=== PATIENT | female | born 1930 | race Caucasian/White ===

== ENCOUNTER 2017-02-21 04:49 | Observation (INO) ==
[2017-02-21] MEDS ORDERED: 0.9 % Sodium Chloride 500 ML IVC ONE (05:10)
[2017-02-21 05:18] LABS: Basophils % 0.8 %; Eosinophils # 0.3 K/mcL (0.0-0.6); Eosinophils % 5.7 %; Hematocrit 36.6 % (35.3-44.9); Hemoglobin 11.8 g/dL (11.5-15.4); Immature Granulocytes % 0.2 % (0-4); Lymphocytes % 20.5 %; Mean Corpuscular HGB Conc 32.2 g/dL (31.6-35.5); Mean Corpuscular Hemoglobin 30.3 pg (28.0-33.3); Mean Corpuscular Volume 94.1 fL (83.0-100.0); Mean Platelet Volume 8.6 fL (9.4-12.4); Monocytes # 0.7 K/mcL (0.0-1.3); Monocytes % 15.1 %; Neutrophils # 2.8 K/mcL (1.6-8.9); Platelet Count 160 K/mcL (140-400); Red Blood Count 3.89 M/mcL (3.82-4.97); Red Cell Distribution Width 14.5 % (11.5-14.5); Segmented Neutrophils % 57.7 %
--- NOTE | 2017-02-21 05:19 | Emergency Department Note ---
Disposition Clinical Impression: Chest pain Qualifiers: Chest pain type: unspecified Qualified Code(s): R07.9 - Chest pain, unspecified Disposition: Admitted As Inpatient Condition: Fair Time of Disposition: 07:36 Chest Pain HPI - General Chief Complaint: ED Chest Pain Stated Complaint: CP Time Seen by Provider: 02/21/17 04:57 Source: patient, EMS Limitations: no limitations Vital Signs Reviewed: Yes Nursing Notes Reviewed: Yes - History of Present Illness HPI Narrative: Patient is an 86-year-old female complains of chest pain that started 1 hour ago. 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 Patient states pain lasts about 20 or 30 minutes bedside assistant corporate secretary side. When EMS arrived. He was ready heading down they gave her nitroglycerin. Patient had 325 mg of aspirin 8 hours ago. Patient on Plavix after CABG. 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 Patient is unable to lift the lid of her left eye as a complication from that surgery. Severity scale (1-10): 0 - Related Data Home Medications Medication Instructions Recorded Confirmed Aspirin Enteric Coated [Aspirin EC] 325 mg PO DAILY 02/21/17 02/21/17 Budesonide [Pulmicort Flexhaler 1 puff IH BID 02/21/17 02/21/17 180mcg] Clopidogrel [Plavix] 75 mg PO DAILY 02/21/17 02/21/17 Digoxin [Lanoxin] 0.125 mg PO DAILY 02/21/17 02/21/17 Ergocalciferol (VITAMIN D2) 400 unit PO DAILY 02/21/17 02/21/17 [Vitamin D] Fluticasone Propionate Nasal 1 spray NS DAILY PRN 02/21/17 02/21/17 [Flonase] Lactobacillus Acidophilus 100 mg PO BID 02/21/17 02/21/17 [Acidophilus] Metoprolol XL (24 HR) Succ [Toprol 50 mg PO DAILY 02/21/17 02/21/17 XL] Nitroglycerin [Nitrostat] 0.4 mg SL Q5M PRN 02/21/17 02/21/17 Pantoprazole Sodium [Protonix] 40 mg PO DAILY 02/21/17 02/21/17 Polyethylene Glycol 3350 [MiraLAX 17 gm PO DAILY PRN 02/21/17 02/21/17 bowel prep] Pramipexole Di-HCl [Pramipexole 0.125 mg PO DAILY 02/21/17 02/21/17 Dihydrochloride] Allergies Allergy/AdvReac Type Severity Reaction Status Date / Time Antihistamines - Alkylamine Allergy Hives Verified 02/21/17 11:14 cephalexin [From Keflex] Allergy Anxiety Verified 02/21/17 11:14 Penicillins Allergy Anaphylaxis Verified 02/21/17 11:14 Sulfa (Sulfonamide Allergy Anaphylaxis Verified 02/21/17 11:14 Antibiotics) Blood Thinners Allergy Anaphylaxis Uncoded 07/15/15 11:25 decongestants Allergy Anaphylaxis Uncoded 07/15/15 11:25 All systems ED: reviewed and negative except as stated. Constitutional: Denies: fever, chills, weakness ENT ED: Denies: congestion, dysphagia Cardiovascular: Reports: chest pain. Denies: palpitations, orthopnea, syncope Respiratory: Denies: cough, dyspnea, wheezes, sputum production Gastrointestinal: Reports: nausea, constipation. Denies: abdominal pain, vomiting, diarrhea Genitourinary: Denies: urgency, dysuria, frequency Musculoskeletal: Reports: back pain. Denies: neck pain Integumentary: Denies: rash Neurological: Denies: headache, weakness Psychiatric: Denies: anxiety, depression Endocrine: Denies: fatigue Chest Pain PMH - Past Medical History Medical history: Reports: hyperlipidemia, hypertension, other Surgical history: Reports: coronary bypass (CABG), pacemaker/AICD, thyroidectomy Psychiatric history: Reports: no psych history - Social History Smoking Status: Never smoker Alcohol use: Reports: none Drug use: Reports: none Physical Exam - General Limitations: no limitations General appearance: alert - Head Head exam: atraumatic, normocephalic, normal inspection - Eye Eye exam: Present: normal appearance, PERRL, EOMI - ENT ENT exam: normal exam, normal oropharynx, mucous membranes moist - Neck Neck exam: Present: normal inspection, full ROM, trachea midline. Absent: tenderness, meningismus, lymphadenopathy - Chest Chest inspection: Present: normal inspection, symmetric chest wall rise. Absent : tenderness - Respiratory Respiratory exam: Present: normal lung sounds bilaterally. Absent: respiratory distress, wheezes - Cardiovascular Cardiovascular exam: Present: regular rate, normal rhythm - Abdominal Exam Abdominal exam: Present: soft, Non-Tender. Absent: tenderness, distention - Neurological Exam Neurological exam: Present: alert, oriented X3, CN II-XII intact - Psychiatric Psychiatric exam: Present: normal affect, normal mood - Skin Skin exam: Present: warm, dry, intact Course - Reevaluation(s) Reevaluation #1: Assessment: ACS/FL, aortic dissection, AAA, PE, pneumothorax Plan: CBC, BMP, EKG, troponin, chest x-ray, start IV, patient really had aspirin 325 mg 8 hours ago. Patient received nitroglycerin in route via EMS 1. Patient's pain currently 0 out of 10. Admit patient for further evaluation. Time: 04:58 Reevaluation #2: Patient states that she is doing well. No complaints at this time. Waiting for her to give urine sample No lab abnormalities in CBC or BMP. Troponin is negative is 0.03 chest x-ray shows no acute abnormalities. Time: 05:30 Reevaluation #3: Patient sleeping comfortably. No complaints at this time awaiting callback from hospitalist for admission Time: 06:15 Additional Reevaluation(s): Patient finally accepted by hospitalist. Patient's currently comfortable. ED evaluation complete - Consultations Consultation #1: Dr. Lee has accepted for admission 0732 hrs Time: 07:37 Vital Signs Temperature 98.2 F 02/21/17 04:54 Pulse Rate 67 02/21/17 04:54 Respiratory Rate 14 02/21/17 04:54 Blood Pressure 151/89 02/21/17 04:54 O2 Sat by Pulse Oximetry 97 02/21/17 04:54 Temperature 98.0 F 02/21/17 18:40 Pulse Rate 67 02/21/17 18:40 Respiratory Rate 16 02/21/17 18:40 Blood Pressure 133/74 02/21/17 18:40 O2 Sat by Pulse Oximetry 97 02/21/17 18:40 Oxygen Delivery Oxygen Delivery Room Air Chest Pain - Medical Records Medical records reviewed: Yes I reviewed the patient's medical records. - Lab Data Lab results reviewed: Yes I reviewed the patient's lab results. Lab results narrative: Short CBC 02/21/17 Range/Units 05:11 WBC 4.8 (4.3-11.1) K/mcL Hgb 11.8 (11.5-15.4) g/dL Hct 36.6 (35.3-44.9) % Plt Count 160 (140-400) K/mcL Neutrophils # 2.8 (1.6-8.9) K/mcL BMP 02/21/17 Range/Units 05:11 Sodium 140 (136-145) mEq/L Potassium 4.0 (3.5-4.5) mEq/L Chloride 107 (98-109) mEq/L Carbon Dioxide 29 (19-29) mEq/L BUN 10 (7-20) mg/dL Creatinine 0.66 (0.57-1.11) mg/dL Glucose 90 (70-99) mg/dL Calcium 9.2 (8.6-10.8) mg/dL Cardiac Enzymes 02/21/17 Range/Units 05:11 Troponin I 0.03 (0-0.03) ng/mL Urine 02/21/17 Range/Units 06:15 Urine Color Yellow (Yellow) Urine Clarity Clear (Clear) Urine pH 7.0 (5.0-8.0) pH Units Ur Specific [place] 1.008 L (1.010-1.025) Urine Protein Negative (Neg-Trace) mg/dL Urine Glucose (UA) Normal (Normal) mg/dL Result diagrams: 02/21/17 05:11 02/21/17 05:11 Lab Results 02/21/17 02/21/17 02/21/17 Range/Units 05:11 05:11 05:11 WBC 4.8 (4.3-11.1) K/mcL RBC 3.89 (3.82-4.97) M/mcL Hgb 11.8 (11.5-15.4) g/dL Hct 36.6 (35.3-44.9) % MCV 94.1 (83.0-100.0) fL MCH 30.3 (28.0-33.3) pg MCHC 32.2 (31.6-35.5) g/dL RDW 14.5 (11.5-14.5) % Plt Count 160 (140-400) K/mcL MPV 8.6 L (9.4-12.4) fL Immature Gran % 0.2 (0-4) % Seg Neutrophils % 57.7 % Lymphocytes % 20.5 % Monocytes % 15.1 % Eosinophils % 5.7 % Basophils % 0.8 % Neutrophils # 2.8 (1.6-8.9) K/mcL Lymphocytes # 1.0 (0.6-4.6) K/mcL Monocytes # 0.7 (0.0-1.3) K/mcL Eosinophils # 0.3 (0.0-0.6) K/mcL Basophils # 0.0 (0.0-0.2) K/mcL PT 11.2 (9.4-12.1) Seconds INR 1.0 APTT 28.7 (26.0-36.0) Seconds Sodium 140 (136-145) mEq/L Potassium 4.0 (3.5-4.5) mEq/L Chloride 107 (98-109) mEq/L Carbon Dioxide 29 (19-29) mEq/L BUN 10 (7-20) mg/dL Creatinine 0.66 (0.57-1.11) mg/dL Est GFR ( Amer) > 60 (> 60) Est GFR (Non-Af Amer) > 60 (> 60) BUN/Creatinine Ratio 15 (6-26) Glucose 90 (70-99) mg/dL Calculated Osmolality 289 (280-300) Calcium 9.2 (8.6-10.8) mg/dL Troponin I (0-0.03) ng/mL Urine Color (Yellow) Urine Clarity (Clear) Urine pH (5.0-8.0) pH Units Ur Specific [place] (1.010-1.025) Urine Protein (Neg-Trace) mg/dL Urine Glucose (UA) (Normal) mg/dL Urine Ketones (Negative) mg/dL Urine Blood (Negative) Urine Nitrite (Negative) Urine Bilirubin (Negative) Urine Urobilinogen (Normal) mg/dL Ur Leukocyte Esterase (Negative) Ur Culture Indicated? (NO) 02/21/17 02/21/17 Range/Units 05:11 06:15 WBC (4.3-11.1) K/mcL RBC (3.82-4.97) M/mcL Hgb (11.5-15.4) g/dL Hct (35.3-44.9) % MCV (83.0-100.0) fL MCH (28.0-33.3) pg MCHC (31.6-35.5) g/dL RDW (11.5-14.5) % Plt Count (140-400) K/mcL MPV (9.4-12.4) fL Immature Gran % (0-4) % Seg Neutrophils % % Lymphocytes % % Monocytes % % Eosinophils % % Basophils % % Neutrophils # (1.6-8.9) K/mcL Lymphocytes # (0.6-4.6) K/mcL Monocytes # (0.0-1.3) K/mcL Eosinophils # (0.0-0.6) K/mcL Basophils # (0.0-0.2) K/mcL PT (9.4-12.1) Seconds INR APTT (26.0-36.0) Seconds Sodium (136-145) mEq/L Potassium (3.5-4.5) mEq/L Chloride (98-109) mEq/L Carbon Dioxide (19-29) mEq/L BUN (7-20) mg/dL Creatinine (0.57-1.11) mg/dL Est GFR ( Amer) (> 60) Est GFR (Non-Af Amer) (> 60) BUN/Creatinine Ratio (6-26) Glucose (70-99) mg/dL Calculated Osmolality (280-300) Calcium (8.6-10.8) mg/dL Troponin I 0.03 (0-0.03) ng/mL Urine Color Yellow (Yellow) Urine Clarity Clear (Clear) Urine pH 7.0 (5.0-8.0) pH Units Ur Specific [place] 1.008 L (1.010-1.025) Urine Protein Negative (Neg-Trace) mg/dL Urine Glucose (UA) Normal (Normal) mg/dL Urine Ketones Negative (Negative) mg/dL Urine Blood Negative (Negative) Urine Nitrite Negative (Negative) Urine Bilirubin Negative (Negative) Urine Urobilinogen Normal (Normal) mg/dL Ur Leukocyte Esterase Negative (Negative) Ur Culture Indicated? NO (NO) - Radiology Data Radiology results reviewed: Yes I reviewed the patient's radiology results. Chest X-Ray 02/21/17 05:10 IMPRESSION: No acute disease. D/ / Dg Marie MD / Dg Marie MD Interpreting Provider: Dg Marie MD - EKG Data EKG attestation: Yes I reviewed and interpreted this EKG. EKG results narrative: EKG taken 02/21/2017 0457 hrs. shows a paced rhythm at a rate of 72 bpm no acute signs of ischemia. Previous EKG for comparison taken 02/06/2016 SHOWS a paced rhythm at a rate of 62 beats a minute. Both EKGs look comparable in morphology. Heart Score - Score History: Moderately Suspicious EKG: Non Specific repolarisation Disturbance Age: Greater than 65 Risk Factors: Equal/Greater than 3 risk factor or history of atherosclerotic disease Troponin: Less than normal limit HEART Score Total: 6 Attestation Statement - Attestation Attestation: I, Moi Bryant MD, personally performed a history and physical exam of the patient and discussed their management with the resident. I reviewed the resident's note and agree with the documented findings, medical decision making , and plan of care. 86-year-old female persisted emergency department by EMS with a complaint that she awoke from sleep with some chest pain about an hour prior to arrival. Patient has a cardiac history and has had bypass surgery in the past. She has a pacemaker. She denies pain at present. Patient is a very poor historian. On examination patient is a well-developed thin elderly female in no acute distress. She is alert and oriented 3. There is no cyanosis or diaphoresis. Some mild diffuse tenderness over the mid anterior chest wall. Breath sounds are decreased but equal bilaterally. Heart regular. Abdomen soft and nontender with normal bowel sounds. EKG shows an electronic ventricular pacemaker with totally paced rhythm. Chest x-ray negative. Labs reviewed. The hospitalist, Dr. Moise, was consulted and accepted admission of the patient.
[2017-02-21 05:26] LABS: Prothrombin Time 11.2 Seconds (9.4-12.1)
[2017-02-21 05:29] LABS: Activated Partial Thrombo Time 28.7 Seconds (26.0-36.0)
[2017-02-21 05:31] LABS: BUN/Creatinine Ratio 15 (6-26); Blood Urea Nitrogen 10 mg/dL (7-20); Calcium 9.2 mg/dL (8.6-10.8); Carbon Dioxide 29 mEq/L (19-29); Chloride 107 mEq/L (98-109); Glucose 90 mg/dL (70-99); Osmolality,Calculated 289 (280-300); Sodium 140 mEq/L (136-145); eGFR For African Americans > 60 (> 60); eGFR For Non-African Americans > 60 (> 60)
[2017-02-21 06:24] LABS: Bilirubin,Urine Negative (Negative); Blood,Urine Negative (Negative); Clarity,Urine Clear (Clear); Color,Urine Yellow (Yellow); Glucose,Urine (UA) Normal (Normal); Ketones,Urine Negative (Negative); Leukocyte Esterase,Urine Negative (Negative); Nitrite,Urine Negative (Negative); Protein,Urine Negative (Neg-Trace); Specific Gravity,Urine 1.008 (1.010-1.025); Urobilinogen,Urine Normal (Normal)
--- NOTE | 2017-02-21 09:23 | Internal Med History&Physical ---
Date of Encounter: 02/21/17 Time of Encounter: 09:23 Assessment and Plan (1) Chest pain Current visit: Yes Status: Acute atypical chest pain, first troponin is negative, EKG with no ischemic changes. No significant cardiac history of CAD or CHF, does give history of ASD repair. History does not sound like it is coming from the heart. However we will trend troponin 3. She reports that food makes it better, unclear if she has a duodenal ulcer. We will start on PPI and sucralfate. may need EGD if pain does not get better and once ACS is ruled out. Qualifiers: Chest pain type: unspecified Qualified Code(s): R07.9 - Chest pain, unspecified (2) H/O atrial septal defect repair Current visit: Yes Status: Acute (3) Constipation Current visit: Yes Status: Acute reports that she takes [id number] medication for constipation. She has not moved her pulse for the last 3 days, however reports that she is passing gas. Denies abdominal pain, nausea or vomiting. We will add senna and monior for bowel movement. Qualifiers: Constipation type: unspecified constipation type Qualified Code(s): K59.00 - Constipation, unspecified Internal Medicine - H&P: HPI Chief complaint: chest pain Admitted From: Home Plans for Post Hospital Care: Home History of present illness: Ms. Sharma is a 86 year old female h/o ASD repair and recent surgery 6 weeks to go for carotid aneurysm presented to the ED with complaints of complains of chest pain that started 1 hour ago. Reports that it has sharp midsternal with radiation to her spine. She has been having this chest pain on and off ever since the surgery. SHE says right at the middle where she had the surgery. sHe reports that some days it is better and some days it is bad.. She says food makes it better and she is concerned that she might have an ulcer. She denies any abdominal pain, nausea, vomiting or diarrhea, eloy She denies any cough, fever, shortness of breath,leg swelling, she never has had an EGD done. Past Med Surg Social Fam HX - Past Medical History Medical history: hyperlipidemia, hypertension, other Psychiatric history: no psych history - Past Surgical History Surgical History: coronary bypass (CABG), pacemaker/AICD, thyroidectomy - Social History Smoking Status: Never smoker Smokeless Tobacco Status: No Alcohol use: none Drug use: none Internal Medicine - H&P: Meds Digoxin [Lanoxin] 02/06/16 [History] Metoprolol 02/06/16 [History] Nitrofurantoin (BID) [Macrobid] 100 mg PO BID #10 capsule 02/16/16 [Rx] Doxycycline 100 mg PO BID #14 capsule 05/11/16 [Rx] Allergies Antihistamines - Alkylamine Allergy (Verified 07/15/15 11:25) Hives aspirin [ASA] Allergy (Verified 07/15/15 11:25) Anaphylaxis cephalexin [From Keflex] Allergy (Verified 07/15/15 11:42) Anxiety Penicillins Allergy (Verified 07/15/15 11:25) Anaphylaxis Sulfa (Sulfonamide Antibiotics) Allergy (Verified 07/15/15 11:25) Anaphylaxis Blood Thinners Allergy (Uncoded 07/15/15 11:25) Anaphylaxis decongestants Allergy (Uncoded 07/15/15 11:25) Anaphylaxis All Systems PM: A 10-system review of systems was performed and is negative for pertinent findings except as documented above in the HPI. - Constitutional Vitals: Temp Pulse Resp BP Pulse Ox 97.8 F 61 17 131/84 98 02/21/17 08:58 02/21/17 08:58 02/21/17 08:58 02/21/17 08:58 02/21/17 08:58 General appearance: Present: A&O X 3, no acute distress Exam: Neck supple. Chest bilateral clear, no added sounds. CVS S1-S2, no murmurs rubs or gallops. Abdomen soft, nontender, bowel sounds are present. Extremities no edema. Neuro alert overweight, no focal neuro deficits Internal Med - H&P Results - Labs CBC & Chem 7: 02/21/17 05:11 02/21/17 05:11
[2017-02-21] MEDS ORDERED: Naloxone 0.4 MG/ML INJ IVP PRN (09:33)
[2017-02-21] MEDS: *HR* Digoxin 0.125 MG TABLET PO SCH (10:16)
[2017-02-21] MEDS: Metoprolol XL (24 HR) Succ 50 MG TAB.ER.24H PO SCH (10:16)
[2017-02-21] MEDS: Sucralfate 1 GM TABLET PO SCH ×3 (12:06→21:28)
[2017-02-21] MEDS: Sennosides/Docusate Sodium TABLET PO SCH ×2 (14:14→21:28)
[2017-02-21] MEDS: Pantoprazole 40 MG VIAL IVP SCH (17:16)
[2017-02-21] MEDS ORDERED: Aspirin Enteric Coated 81 MG Tablet PO SCH (21:00)
[2017-02-21] MEDS ORDERED: Aspirin 325 MG TABLET PO SCH (22:00)
[2017-02-22 02:55] LABS: Basophils % 0.9 %; Eosinophils # 0.3 K/mcL (0.0-0.6); Eosinophils % 6.9 %; Hematocrit 35.9 % (35.3-44.9); Hemoglobin 11.5 g/dL (11.5-15.4); Immature Granulocytes % 0.2 % (0-4); Lymphocytes # 1.3 K/mcL (0.6-4.6); Mean Corpuscular Hemoglobin 30.4 pg (28.0-33.3); Mean Platelet Volume 9.4 fL (9.4-12.4); Monocytes # 0.7 K/mcL (0.0-1.3); Monocytes % 13.9 %; Neutrophils # 2.4 K/mcL (1.6-8.9); Platelet Count 149 K/mcL (140-400); Red Blood Count 3.78 M/mcL (3.82-4.97); Red Cell Distribution Width 14.4 % (11.5-14.5); Segmented Neutrophils % 51.1 %
[2017-02-22 03:12] LABS: BUN/Creatinine Ratio 19 (6-26); Blood Urea Nitrogen 15 mg/dL (7-20); Calcium 8.8 mg/dL (8.6-10.8); Carbon Dioxide 32 mEq/L (19-29); Chloride 107 mEq/L (98-109); Glucose 75 mg/dL (70-99); Osmolality,Calculated 292 (280-300); Potassium 4.2 mEq/L (3.5-4.5); Sodium 141 mEq/L (136-145); eGFR For African Americans > 60 (> 60); eGFR For Non-African Americans > 60 (> 60)
[2017-02-22] MEDS: Pantoprazole 40 MG VIAL IVP SCH ×2 (05:17→17:32)
[2017-02-22] MEDS ORDERED: *HR* Enoxaparin 30 MG/0.3 ML SYRINGE SQ SCH (06:00)
[2017-02-22] MEDS: *HR* Digoxin 0.125 MG TABLET PO SCH (08:02)
[2017-02-22] MEDS: Sennosides/Docusate Sodium TABLET PO SCH (08:02)
[2017-02-22] MEDS: Metoprolol XL (24 HR) Succ 50 MG TAB.ER.24H PO SCH (08:02)
[2017-02-22] MEDS: Sucralfate 1 GM TABLET PO SCH ×3 (08:02→17:32)
[2017-02-22] MEDS ORDERED: Aspirin Enteric Coated 81 MG Tablet PO SCH (09:00)
[2017-02-22] MEDS ORDERED: *HR* Digoxin 0.125 MG TABLET PO SCH (09:00)
[2017-02-22 15:17] VITALS: BP 145/71
--- NOTE | 2017-02-22 17:45 | ECHO - Doppler Report ---
Echocardiogram Name: Angelita Sharma Date of Study: 02/22/2017 Date: 1930 Ht: 55.0 in Medical Record#: [id number] Age: 86 Wt: 115.0 lb Gender: Female BSA: 1.39 Order #: [id number] Location: [facility] Room #: 3B31 Reading Physician: Quentni Granados MD, [facility] Heel Splitter: PATO DomínguezT, [facility] Ordering Physician: Manasa Freeman CNP Primary Physician: Joanie Taylor NP Indications: Chest pain Impressions: LVEF 50-55%. No pulmonary hypertension. Moderately dilated right ventricle with normal function No significant valvular dysfunction. Left Ventricular Wall Motion: Rest Echo Findings All wall segments showed normal motion. Findings: Study Quality * Technically adequate exam. Aortic Valve * Trileaflet aortic valve with normal function. Interatrial Septum * No evidence of PFO by color Doppler. Aorta * Normally sized aortic root. Pericardium * The pericardium appears normal. Mitral Valve * No mitral stenosis. * Mild mitral annular calcification * Trace mitral regurgitation. Tricuspid Valve * Moderate tricuspid regurgitation. * No tricuspid stenosi. * Estimated RVSP is 18 mmHg. * Estimated RA pressure is 5-8mmHg. * No pulmonary hypertension. Pulmonic Valve * No pulmonic regurgitation. * No pulmonic stenosis. * Normal pulmonic valve structure. Pulmonary Artery * Normal visualized portions of the main pulmonary artery. Device lead * A device lead was visualized in the right atrium and right ventricle. Left Ventricle * Atypical septal motion consistent with paced rhythm. * Indeterminate diastolic function. * LVEF 50-55%. Right Ventricle * Moderately dilated right ventricle with normal function Right Atrium * Mildly dilated right atrium. Left Atrium * Mildly dilated left atrium. IVC * The IVC is dilated. * > 50% respiratory change History Hypertension Hypercholesteremia Family History of CAD Congestive Heart Failure Pacer/ICD Implant Measurements: BP: 125/ 74 2D Normal Values RVIDd: 3.67 cm <2.7 cm IVSd: 1.43 cm 0.6 - 1.0 cm LVIDd: 3.40 cm 3.7 - 5.6 cm LVPWd: .96 cm 0.6 - 1.1 cm LVIDs: 2.24 cm 1.5 - 3.6 cm AO: 2.90 cm < 4.0 cm LA: 4.20 cm 2.0 - 4.0cm %FS: 34.10 cm >25 % LVOT Diam: 1.90 cm LA volume: 76 Mitral Valve Peak E:.86 m/sec Peak E' Lat Chris:14.5 cm/s Peak E' Med Chris:8.38 cm/s E/E' Lat Ratio:6 E/E' Med Ratio:10.3 Tricuspid Valve TV Regurg Peak Grad: 18.00mmHg TV Regurg Peak Chris: 2.11m/sec Updated by Quentin Granados MD, [facility] on 02/22/2017 5:38:55 PM electronically signed on 02/22/2017 5:39:37 PM with status of Final Wall Motion [place]: 1=Normal, 2=Hypokinesis, 3=Akinesis, 4=Dyskinesis, 5=Aneurysmal, 6=Hyperkinetic, X=Not Visualized (Blank)=Missing
--- NOTE | 2017-02-22 17:50 | Discharge Summary ---
Date of Encounter: 02/22/17 Time of Encounter: 10:05 - Discharge Diagnosis (1) Chest pain Priority: Primary Status: Acute Comments: Pt reports history of chronic pain to R chest and R flank. Pt states that pain is not any different than her normal pain. She reports very specific intercostal pain to the R of her sternum, 8th or 9th ICS. Pt states that pain radiates straight through to her back and is unchanged from her normal pain. 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 Echo today shows LVEF 50-55%. No pulmonary hypertension. Moderately dilated RV with normal function. No significant valvular dysfunction. Indeterminate diastolic function. Troponins were negative. Patient has been pain-free. EKG was normal sinus with no ischemic changes. She had an ASD repair in the . Patient will continue PPI and sucralfate at home and EGD outpatient. Qualifiers: Chest pain type: unspecified Qualified Code(s): R07.9 - Chest pain, unspecified (2) H/O atrial septal defect repair Priority: Secondary Status: Chronic Comments: Chronic. Resolved. Surgical repair in the . (3) Constipation Priority: Secondary Status: Acute Comments: Abdomen is soft and nontender, bowel sounds are present. She states that she has had no bowel movement for 3 days. When I went in to discuss her test results and discharge with her, I suggested that she try a bottle of mag citrate at home. She says that she has had a bowel movement here today and that that was not necessary. She says she has a bottle at home and will not need any and will use it if necessary. Qualifiers: Constipation type: unspecified constipation type Qualified Code(s): K59.00 - Constipation, unspecified - Discharge Medications Prescriptions: Sennosides/Docusate Sodium [Senna Plus] 1 each PO BID #60 tablet Sucralfate [Carafate] 1 gm PO QIDAC #120 tablet Home Medications: Aspirin Enteric Coated [Aspirin EC] 325 mg PO DAILY 02/21/17 [History] Budesonide [Pulmicort Flexhaler 180mcg] 1 puff IH BID 02/21/17 [History] Clopidogrel [Plavix] 75 mg PO DAILY 02/21/17 [History] Digoxin [Lanoxin] 0.125 mg PO DAILY 02/21/17 [History] Ergocalciferol (VITAMIN D2) [Vitamin D] 400 unit PO DAILY 02/21/17 [History] Fluticasone Propionate Nasal [Flonase] 1 spray NS DAILY PRN 02/21/17 [History] Lactobacillus Acidophilus [Acidophilus] 100 mg PO BID 02/21/17 [History] Metoprolol XL (24 HR) Succ [Toprol Xl] 50 mg PO DAILY 02/21/17 [History] Nitroglycerin [Nitrostat] 0.4 mg SL Q5M PRN 02/21/17 [History] Pantoprazole Sodium [Protonix] 40 mg PO DAILY 02/21/17 [History] Polyethylene Glycol 3350 [MiraLAX bowel prep] 17 gm PO DAILY PRN 02/21/17 [ History] Pramipexole Di-HCl [Pramipexole Dihydrochloride] 0.125 mg PO DAILY 02/21/17 [ History] Sennosides/Docusate Sodium [Senna Plus] 1 each PO BID #60 tablet 02/22/17 [Rx] Sucralfate [Carafate] 1 gm PO QIDAC #120 tablet 02/22/17 [Rx] Allergies/Adverse Reactions: Allergies Antihistamines - Alkylamine Allergy (Verified 02/21/17 11:14) Hives cephalexin [From Keflex] Allergy (Verified 02/21/17 11:14) Anxiety Penicillins Allergy (Verified 02/21/17 11:14) Anaphylaxis Sulfa (Sulfonamide Antibiotics) Allergy (Verified 02/21/17 11:14) Anaphylaxis Blood Thinners Allergy (Uncoded 07/15/15 11:25) Anaphylaxis decongestants Allergy (Uncoded 07/15/15 11:25) Anaphylaxis Procedures/tests Complete & Pending: Procedures Performed prior 72 hours Category Date Time Status EV echocardiogram Routine Y 02/22/17 10:10 Completed Date of admission: 02/21/17 08:01 Primary care physician: Joanie Taylor CNP Consults: 02/21/17 10:04 Consult to Sustainability Purchasing Agent [CONS] Routine Reason for SW Consult: currently has Donya SUNG. may need renewed. Discharging clinician: Manasa Freeman Anticipated date of discharge: 02/22/17 - Patient Status Disposition: Home, Self-Care Condition: Good Functional capacity at discharge: independent ambulation Overall status at discharge: patient is back to baseline - Discharge Instructions Instructions: Chest Pain (DC), Heart Healthy Diet (DC) Follow Up With: Joanie Taylor CNP [Primary Care Provider] - Additional Instructions: Start taking your new medications tomorrow. Resume your normal home medications. Follow up with your PCP for a follow up and referral to GI for EGD Return to the ER for any other problems or concerns or if your condition changes or worsens. Follow-up appointments: If there is not an appointment listed below, please call your physician and schedule a follow-up appointment. If you have congestive heart failure and your symptoms return, make an appointment with your physician. Medication List: Carry an up to date list of medications you are taking at all time. We have given you an updated medication list including any new medications that you have been prescribed. Please provide that list to your primary provider Symptoms: If your condition changes or you experience any of the following symptoms, notify your physician immediately: Unusual or worsening pain, fever, persistent nausea and vomiting, bleeding, increase in swelling (especially in your legs), sudden weight gain, extreme dizziness, chest pain, increased drainage or redness from a wound or incision. Go to the emergency department if you experience a problem with breathing. Weights: If you have a history of swelling or shortness of breath, weigh yourself daily and notify your physician if you have a weight gain of two or more pounds in one day or 5 or more pounds in a week. If you experience any of the warning signs for stroke: Sudden numbness or weakness of the face, arm or leg; especially on one side of the body, sudden confusion, trouble speaking or understanding, sudden trouble seeing in one or both eyes, sudden trouble walking, dizziness, loss of balance or coordination, sudden sever headache with no cause; Call 911 or go to the emergency room. Stroke is a medical emergency. Some risk factors for stroke: Age, cigarette smoking, diabetes, excessive alcohol consumption, family history , high blood pressure, overweight, physical inactivity, prior stroke, heart attack, diagnosis of carotid artery stenosis or other artery disease. If you smoke, STOP: Smoking or tobacco use significantly increases your risk of heart and lung disease. Your chance of disease greatly increases if you continue to smoke. For more information, call the [employer] tobacco quit line for smoking cessation QUIT-NOW ( ) - Diet and Activity Activity: increase activity as tolerated Diet: advance to your usual diet Hospital course: Ms. Sharma is a 86 year old female with a history of left carotid aneurysm stenting, ASD repair in the , left eye cataract laser removal March 2015. Patient uses an inhaler and takes digoxin but denies any recent cardiac history. She presented to the emergency department last night for 1 hour history of chest pain. It awakened her from sleep and was 6 out of 10, sharp and midsternal with radiation to her spine. She states that it lasted 20-30 minutes when she came to the emergency room. She has not had pain since she arrived at the emergency room last night. 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 The place that she describes that has the pain is very specific that is about the size of a dime and is right intercostal space 8th or 9th rib just immediately to the right of the sternum with radiation to the same place in the back. She says that this is where they cut her ribs to do her CABG. She also reports right flank pain of several years duration 2. Patient has very severe scoliosis and this flank pain is most likely due to that. Her urine is negative and she does not have any CVA tenderness. All of her labs are within normal limits her troponin was negative 3 vital signs up in stable she has a pacemaker chest x- ray is negative for acute disease. She was under the impression that she was going to have an EGD today and was upset when she found out that that would not happen today. She has been sent home with senna and sucralfate. And she agrees to follow-up with her primary care physician for follow-up and possible EGD. She did ask for an echocardiogram to rule out cardiac events. She says she has had multiple echocardiograms in the past in [place]. The patient initially reported constipation, however when I discussed with her treatment options, she said that she had a bowel movement today. I suggested mag citrate half bottle today, half bottle tomorrow if the first half did not work. Patient states that she has a bottle at home and does not need it at this time. Today's echocardiogram showed no pulmonary hypertension, moderately dilated right ventricle with normal function, no significant valvular dysfunction and LVEF of 50-55%. Patient did not want to wait for echo to be read and wanted to leave. She has multiple family members in the room who have brought her some food for [employer]. Patient is stable for discharge and will be driven home by family. - Time Spent with Patient Total time spent providing and/or coordinating discharge services: Greater than 30 minutes - Constitutional Vitals: Temp Pulse Resp BP Pulse Ox 98.0 F 110 17 145/71 96 02/22/17 15:15 02/22/17 15:15 02/22/17 15:15 02/22/17 15:15 02/22/17 15:15 General appearance: Present: cooperative, A&O X 3, pleasant, no acute distress, answers questions appropriately - Head Head exam: Present: normal inspection Additional comments: Pt has L eye droop s/p laser surery to L eye for cataract in March 2015. - Eye Eye exam: Present: conjuntiva pink. Absent: normal appearance, periorbital swelling, periorbital tenderness - ENT ENT exam: Present: mucous membranes moist, normal exam - Neck Neck exam general surgery: Present: normal inspection. Absent: lymphadenopathy , tenderness - Respiratory Respiratory exam: Present: CTAB, rales, respiratory distress. Absent: chest wall tenderness, stridor, wheezes - Cardiovascular Cardiovascular exam: Present: RRR, +S1, +S2 - Extremities Exam Extremities exam: Present: normal capillary refill, normal inspection, warm, radial pulses palpable and symetrical. Absent: pedal edema, tenderness
--- NOTE | 2017-02-23 09:04 | Electrocardiograph Report ---
[address] [place], [place] [address] Test Date: 2017-02-21 Pat Name: Angelita Sharma Department: 105 Room: 3B31 Gender: F Clinical Education Academic Coordinator: BARI : 1930 Requested By: Kang Emery Order Number: [id number] Reading MD: Quentin Granados MD Measurements Intervals [place] Rate: 72 P: TN: 0 QRS: -68 QRSD: 157 T: 90 QT: 430 QTc: 454 Interpretive Statements ELECTRONIC VENTRICULAR PACEMAKER ABNORMAL RHYTHM ECG Electronically Signed On 02-23-2017 9:02:55 EDT by Quentin Granados MD
== END 2017-02-22 19:05 | disposition home or self-care (01) ==
LOC: 3BNU 04:49 → EMEROO 04:49 → 3BNU 08:36
PROVIDERS: ADMIT Internal Medicine Endocrinology, Diabetes & Metabolism; ATTEND Registered Nurse